=== PATIENT | female | born 1960 ===

== ENCOUNTER 2016-07-21 08:19 | Day surgery (SDC) | payer SELFPAY ==
[2016-07-17 08:32] VITALS: BMI 25.4
[2016-07-21 08:59] LABS: ADD MANUAL DIFF? NO
[2016-07-21 09:04] LABS: BASO # 0.04 K/mm3 (0.0-2.0); BASO % 0.4 % (0.0-3.0); EOS # 0.2 (0.0-0.7); EOS % 1.7 % (1.5-5.0); GRAN # 5.92 (1.4-6.5); GRAN % 58.7 % (50.0-68.0); HEMATOCRIT 36.6 % (36.0-48.0); LYMPH # 3.4 (1.2-3.4); LYMPH % 33.2 % (22.0-35.0); MEAN CELL VOLUME 80.1 fL (80.0-105.0); MEAN CORPUSCULAR HEMOGLOBIN 25.8 pg (25.0-35.0); MEAN CORPUSCULAR HGB CONC 32.2 g/dl (31.0-37.0); MEAN PLATELET VOLUME 8.5 fl (7.0-11.0); MONO # 0.6 (0.1-0.6); PLATELET COUNT 329 10^3/uL (120.0-450.0); RED CELL DISTRIBUTION WIDTH 14.9 % (11.5-14.5); WHITE BLOOD COUNT 10.1 10^3/ul (4.5-11.0)
[2016-07-21 09:14] LABS: ALB/GLOB RATIO 1.1 (1.1-1.8); ALKALINE PHOSPHATASE 129 U/L (38-133); ALT/SGPT 34 U/L (7-56); AST/SGOT 30 U/L (15-39); BILIRUBIN,TOTAL 0.2 mg/dL (0.2-1.3); BLOOD UREA NITROGEN 21 mg/dL (7-21); CALCIUM 9.4 mg/dL (8.4-10.5); CARBON DIOXIDE 30 mmol/L (21-33); CHLORIDE 101 mmol/L (95-110); GFR AFRICAN-AMERICAN > 60; GLUCOSE,RANDOM 101 mg/dL (70-110); INR 0.95 (0.93-1.08); PARTIAL THROMBOPLASTIN TIME 23.8 Seconds (23.7-30.8); POTASSIUM 4.1 mmol/L (3.6-5.0); SODIUM 141 mmol/L (132-148); TOTAL PROTEIN 8.1 g/dL (5.8-8.3)
[2016-07-21] MEDS ORDERED: Bupivacaine 0.5% Inj(30mL) ONE (11:05)
[2016-07-21] MEDS ORDERED: Lidocaine 1% Inj (20ml) ONE ×2 (11:05→11:11)
[2016-07-21] MEDS ORDERED: Midazolam 2 MG/2 ML VIAL ONE (11:06)
[2016-07-21] MEDS ORDERED: Propofol 10 mg/ml Inj (20 ML) ONE (11:06)
[2016-07-21] MEDS ORDERED: Lidocaine 1%/Epinephrine 1:100000 30 ml vial ONE (11:19)
[2016-07-21] MEDS ORDERED: Lactated Ringer's 1,000 ML IV SCH (11:59)
[2016-07-21] MEDS ORDERED: Oxycodone/Acetaminophen 5/325 mg Tab PO PRN (12:00)
--- NOTE | 2016-07-21 12:00 | PCM.SURG1 ---
Surgeon's Initial Post Op Note - Surgeon's Notes Surgeon: Dr. Joshi Product Designer: Dr. Adkins PGY-2 Type of Anesthesia: IV Sedation Anesthesia Administered By: Dr. Sorensen Pre-Operative Diagnosis: Headaches, r/o temporal arteritis Operative Findings: See operative report Post-Operative Diagnosis: Same Operation Performed: Right temporal artery biopsy Specimen/Specimens Removed: segment of right temporal artery Estimated Blood Loss: EBL {In ML}: 5 Blood Products Given: N/A Drains Used: No Drains Post-Op Condition: Good Date of Surgery/Procedure: 07/21/16 Time of Surgery/Procedure: 11:59
[2016-07-21 12:54] VITALS: BP 107/69; PULSE 78; RESP 18; TEMP 97.5; O2SAT 94
--- NOTE | 2016-07-21 13:55 | OP ---
PROCEDURE DATE: 07/21/2016 PREOPERATIVE DIAGNOSES: Elevated sed rate, right temporal headache, possible arteritis. POSTOPERATIVE DIAGNOSES: Elevated sed rate, right temporal headache, possible arteritis. PROCEDURE: Ultrasound right temporal area, right temporal artery biopsy. SURGEON: Dr. Brittany Joshi JEWELRY COATER: Jed ANESTHESIA: Local with IV sedation. PROCEDURE NOTE: The patient was brought to the OR and placed supine on the OR table. After adequate IV sedation had been accomplished, an ultrasound of the right temporal area was performed showing a normal sized temporal artery. That area was then prepped with Betadine solution and draped out as a sterile field. After local infiltration with 1% Xylocaine with epinephrine, an incision was made und er the hairline. The incision measured 1-1/2 inches. The temporal artery was identified. A 1-inch segment of that was dissected out. Its branches and the proximal and distal end of the temporal carol ry were ligated. A 1-inch segment of temporal artery was excised and sent for pathology. Good hemos tasis was assured. The incision was closed in 1 layer using 4-0 Monocryl subcuticular suture. The p atient tolerated the procedure well and was returned to the recovery room in stable condition. Brittany Joshi MD cc: [id number] TT: 07/21/2016 13:55:14 en
== END 2016-07-21 14:10 | disposition home or self-care (01) ==
LOC: SDS 08:19
PROVIDERS: ATTEND Surgery Vascular Surgery
DX: M31.6 Other giant cell arteritis (principal); R51 Headache; R70.0 Elevated erythrocyte sedimentation rate; I10 Essential (primary) hypertension; Z90.12 Acquired absence of left breast and nipple; Z96.641 Presence of right artificial hip joint
CPT/HCPCS: 36415; 37609; 80053; 85025; 85610; 85730; 88305; J0690; J1885; J2250; J2704; J3010; J7120 ×2